=== PATIENT | female | born 1950 | race Caucasian/White ===

== ENCOUNTER 2017-08-28 10:56 | Emergency (ER) | payer OTHER, MEDICARE ==
[2017-08-28 11:06] VITALS: BP 142/84; PULSE 88; RESP 18; TEMP 98; O2SAT 94
--- NOTE | 2017-08-28 11:24 | EDPHY ---
H & P Time Seen by Provider: 08/28/17 10:58 HPI/ROS: CHIEF COMPLAINT: Sinus infection History by patient HISTORY OF PRESENT ILLNESS: 66-year-old woman presents complaining of 1 week of sinus congestion, stuffy nose and green nasal discharge, cough, sore throat and general malaise. Patient denies any fever or chills. She has had no nausea or vomiting. She has been around her granddaughter who had a similar illness. She denies any chest pain or difficulty breathing. She has tried NyQuil and Sine-Aid with no relief. She has an associated headache which she is worse when she bends her head down. REVIEW OF SYSTEMS: As in HPI, and all other systems reviewed and are negative Smoking Status: Never smoked Physical Exam: General Appearance: Alert and no distress. Head: normocephalic, atraumatic, no sinus tenderness Eyes: Pupils equal and round no injection. Ears: TM clear bilat OP: mucus membranes moist, no tonsillar enlargement, positive erythema but no exudates Neck: no meningismus, bilateral slightly enlarged cervical nodes, no submandibular nodes Respiratory: Chest is nontender, lungs are clear to auscultation. Cardiac: regular rate and rhythm. Gastrointestinal: Abdomen is soft and nontender, no masses, bowel sounds normal. Musculoskeletal: Neck is supple and nontender. Extremities have full range of motion and are nontender. Skin: No rashes or lesions. Constitutional: Initial Vital Signs Temperature (C) 36.6 C 08/28/17 11:04 Heart Rate 88 08/28/17 11:04 Respiratory Rate 18 08/28/17 11:04 Blood Pressure 142/84 H 08/28/17 11:04 O2 Sat (%) 94 08/28/17 11:04 O2 Delivery Mode Room Air Allergies/Adverse Reactions: erythromycin base Allergy (Verified 08/28/17 11:03) Influenza Virus Vaccines Allergy (Verified 08/28/17 11:03) Home Medications: Medication Instructions Recorded Lexapro 08/28/17 MDM/Departure - [facility] ED Course/Re-evaluation: 66-year-old woman presents complaining of URI symptoms and concerned that she has a sinus infection. Patient is afebrile and has had no fever at home and therefore there is no indication to treat for bacterial sinusitis at this time. I discussed this with the patient. We discussed home care and conservative measures including [id number] medicines such as ibuprofen and pseudoephedrine, using humidifier, wound drinks with honey, drinking plenty of fluids and rest. Patient is discharged home in stable condition. - Depart Disposition: Home, Routine, Self-Care Clinical Impression: Upper respiratory infection, acute Condition: Good Instructions: Upper Respiratory Infection (ED) Additional Instructions: You were seen by Dr. Anjali Schwartz. Use a humidifier in the room where you sleep. Try hot drinks with honey. Take ibuprofen 400-600mg 4 times daily and Tylenol 500-1000mg every 6 hours as needed for fever and/or pain. Take pseudoephedrine available [id number] for sinus congestion. Return for any worsening or new concerns.
[2017-08-28] MEDS ORDERED: IBUPROFEN 600 MG TAB PO ONE (11:33)
== END 2017-08-28 11:25 | disposition home or self-care (01) ==
LOC: CED 10:56
DX: J06.9 Acute upper respiratory infection, unspecified (principal)